=== PATIENT | female | born 1975 | race Caucasian/White ===

== ENCOUNTER 2021-09-17 16:51 | Emergency (ER) | payer MEDICAID ==
[~2021-09-17] VITALS: Ht 162.6 cm; Wt 70.0 kg
[2021-09-17 17:15] VITALS: BP 170/90
[2021-09-17] MEDS ORDERED: HYDROCODONE/ACETAMINOPHEN 5/325MG TABLET PO ONE (17:45)
== END 2021-09-17 19:21 | disposition home or self-care (01) ==
LOC: ER 16:51
DX: M54.50 Low back pain, unspecified (principal); E11.9 Type 2 diabetes mellitus without complications; Z98.890 Other specified postprocedural states
CPT/HCPCS: 72100; 81025; 99283